=== PATIENT | male | born 1960 | race Caucasian/White ===

== ENCOUNTER → 2018-01-17 | Outpatient (CLI) | payer BC ==
[2018-01-17 15:55] LABS: Basophils % (A) 0 %; Eosinophils # (A) 0.3 k/uL (0-0.7); Eosinophils % (A) 4 %; HCT 41.7 % (39.0-53.0); HGB 13.7 gm/dL (13.0-17.5); Lymphocytes # (A) 2.1 k/uL (1.0-4.8); Lymphocytes % (A) 27 %; MCH 31.7 pg (25.0-35.0); MCHC 32.9 g/dL (31.0-37.0); MCV 96.4 fL (80.0-100.0); Mean Platelet Volume 7.1; Monocytes # (A) 0.4 k/uL (0-1.0); Monocytes % (A) 6 %; Neutrophils % (A) 63 %; Platelet Count 292 k/uL (150-450); RBC 4.33 m/uL (4.30-5.90); WBC 7.9 k/uL (3.8-10.6)
[2018-01-17 16:13] LABS: Anion Gap 6 mmol/L; Blood Urea Nitrogen 16 mg/dL (9-20); Calcium 9.2 mg/dL (8.4-10.2); Carbon Dioxide 29 mmol/L (22-30); Chloride 104 mmol/L (98-107); Glucose 92 mg/dL (74-99); Potassium 4.6 mmol/L (3.5-5.1); Sodium 139 mmol/L (137-145)
== END | disposition home or self-care (01) ==
LOC: LABPAT 15:11
PROVIDERS: ATTEND Urology
DX: Z01.812 Encounter for preprocedural laboratory examination (principal); C61 Malignant neoplasm of prostate; R35.0 Frequency of micturition; E03.9 Hypothyroidism, unspecified
CPT/HCPCS: 36415; 80048; 85025; 87086

== ENCOUNTER 2018-01-25 05:47 | Observation (INO) | payer BC ==
[2018-01-24 11:50] VITALS: BMI 21.9
--- NOTE | 2018-01-24 13:14 | P.GSHP ---
History of Present Illness H&P Date: 01/20/18 Chief Complaint: Prostate Cancer The patient is a 57-year-old male with recently diagnosed prostate cancer. His PSA level is 4.5. His prostate volume is 18 cc. Biopsies showed a small focus of [place] 6 adenocarcinoma in the left lateral apex, and [place] 7 (3+4) in the right lateral mid gland (40%). He denies voiding symptoms and erectile dysfunction. His Prolaris score is 2.3. - Cardiovascular Cardiovascular: Reports shortness of breath - Respiratory Respiratory: Reports cough - Gastrointestinal Gastrointestinal: Reports abdominal pain - Genitourinary (Female) Genitourinary: Reports urinary frequency - Endocrine Endocrine: Reports fatigue Past Medical History Additional Past Medical History / Comment(s): post concussion syndrome multiple finger ambutation History of Any Multi-Drug Resistant Organisms: None Reported Past Surgical History: Orthopedic Surgery Additional Past Surgical History / Comment(s): multiple hand surg Past Psychological History: Depression Smoking Status: Smoker, current status unknown Past Alcohol Use History: Occasional Past Drug Use History: Marijuana - Past Family History Mother Family Medical History: Cancer Additional Family Medical History / Comment(s): colon cancer Father Family Medical History: Congestive Heart Failure (CHF) Medications and Allergies Home Medications Medication Instructions Recorded Confirmed Type Atorvastatin [Lipitor] 40 mg PO DAILY 01/24/18 01/24/18 History DULoxetine HCL [Cymbalta] 60 mg PO DAILY 01/24/18 01/24/18 History Levothyroxine Sodium [Synthroid] 100 mcg PO DAILY 01/24/18 01/24/18 History clonazePAM [KlonoPIN] 0.5 mg PO DAILY PRN 01/24/18 01/24/18 History lamoTRIgine [LaMICtal] 50 mg PO HS 01/24/18 01/24/18 History lamoTRIgine [LaMICtal] 200 mg PO DAILY 01/24/18 01/24/18 History Allergies Allergy/AdvReac Type Severity Reaction Status Date / Time No Known Allergies Allergy Verified 01/24/18 11:37 Surgical - Exam - General well developed, well nourished, no distress - Neck no masses, trachea midline - Respiratory normal respiratory effort, clear to auscultation - Cardiovascular Rhythm: regular Abnormal Heart Sounds: no systolic murmur, no diastolic murmur, no rub, no S3 Gallop, no S4 Gallop, no click, no other - Abdomen Abdomen: soft, non tender, no guarding, no rigid, no rebound - Genitourinary normal penis with no external lesions, testicles non-tender - Rectum Rectum: normal sphincter tone, no masses, other (prostate palpably normal) - Psychiatric oriented to time, oriented to person, oriented to place, speech is normal, memory intact Assessment and Plan (1) Malignant neoplasm of prostate Status: Acute Code(s): C61 - MALIGNANT NEOPLASM OF PROSTATE SNOMED Code(s): 297781335 Plan: The patient has elected to undergo a nerve sparing robotic-assisted laparoscopic prostatectomy (RALP). A pelvic lymphadenectomy is not felt to be indicated. The procedure has been reviewed in detail with the patient and his . The anticipated perioperative course was discussed, as were potential risks. These include anesthesia, bleeding, infection, urinary leak, rectal injury, vesical neck contracture, development of a hernia, urinary incontinence , and erectile dysfunction (despite preservation of the neurovascular bundles). He is also aware of the possible need for adjuvant therapy.
[~2018-01-25 05:47] MED LIST: HEPARIN SODIUM,PORCINE 5,000 UNIT/ML 1 ML VIAL SQ ONE
[2018-01-25] MEDS ORDERED: ceFAZolin 1,000 MG in EMPTY BAG 1 BAG IVPB ONE (06:00)
[2018-01-25] MEDS ORDERED: HYDROmorphone 0.5 MG/0.5 ML SYRINGE IVP PRN (06:03)
[2018-01-25] MEDS ORDERED: MIDAZOLAM 2 MG/2 ML VIAL IV PRN (06:03)
[2018-01-25] MEDS ORDERED: fentaNYL (PF) 50 MCG/ML 2 ML AMP IV PRN (06:03)
[2018-01-25] MEDS ORDERED: LIDOCAINE 1% 20 ML VIAL (10MG/ML) FOR IV START INTRADERMA ONE (06:33)
[2018-01-25] MEDS: LACTATED RINGERS 1,000 ML IV SCH ×2 (06:33→06:37)
[2018-01-25] MEDS ORDERED: ONDANSETRON 4 MG/2 ML VIAL IVP ONE (06:38)
[2018-01-25] MEDS ORDERED: DEXAMETHASONE SOD PHOS (MDV) 100 MG/10 ML VIAL IV ONE (06:39)
[2018-01-25] MEDS ORDERED: ROPIVACAINE 5 MG/ML 30 ML VIAL MISCELLANE ONE (07:19)
[2018-01-25] MEDS ORDERED: fentaNYL (PF) 50 MCG/ML 2 ML AMP ONE (07:30)
[2018-01-25] MEDS ORDERED: PROPOFOL 10 MG/ML 20 ML VIAL IV ONE (07:30)
[2018-01-25] MEDS ORDERED: ONDANSETRON 4 MG/2 ML VIAL ONE (07:30)
[2018-01-25] MEDS ORDERED: ePHEDrine SULFATE/0.9% NACL/PF 50 MG/5 ML SYRINGE IV ONE (07:30)
[2018-01-25] MEDS ORDERED: VECURONIUM 10 MG VIAL IV ONE (07:30)
[2018-01-25] MEDS ORDERED: MIDAZOLAM 2 MG/2 ML VIAL ONE (07:30)
[2018-01-25] MEDS ORDERED: PHENYLEPHRINE-0.9% NACL SYG 1 MG/10 ML SYRINGE ONE (07:30)
[2018-01-25] MEDS ORDERED: LIDOCAINE 1% INJ 10MG/ML (20 ML MDV) ONE (07:30)
[2018-01-25] MEDS ORDERED: SUCCINYLCHOLINE CHLORIDE 100 MG/5 ML SYR IV ONE (07:30)
[2018-01-25] MEDS ORDERED: HYDROmorphone 1 MG/ML 1 ML SYRINGE IVP PRN (10:40)
[2018-01-25] MEDS ORDERED: ONDANSETRON 4 MG/2 ML VIAL IVP PRN (10:40)
[2018-01-25] MEDS ORDERED: MAG HYDROX/AL HYDROX/SIMETH 30 ML CUP PO PRN (10:40)
[2018-01-25] MEDS ORDERED: ACETAMINOPHEN TAB 325 MG TAB PO PRN (10:40)
[2018-01-25] MEDS ORDERED: LACTATED RINGERS 1,000 ML IV ONE (11:28)
[2018-01-25] MEDS: KETOROLAC 30 MG/ML 1 ML VIAL IVP PRN ×2 (12:35→19:29)
[2018-01-25] MEDS: DEXTROSE 5%-0.45% NACL 1,000 ML IV SCH ×2 (12:37→20:33)
--- NOTE | 2018-01-25 15:39 | P.OP ---
Date of Procedure: 01/25/18 Preoperative Diagnosis: Adenocarcinoma of the Prostate, Clinical Stage [id number] Postoperative Diagnosis: Same Procedure(s) Performed: Nerve Sparing Robotic-assisted Laparoscopic Prostatectomy (RALP) Anesthesia: CAMERON Surgeon: Armand Garcia Supervisory Civil Engineer #1: Duc Urena Estimated Blood Loss (ml): 50 IV fluids (ml): 800 Pathology: other (prostate and seminal vesicles) Condition: stable Disposition: PACU Indications for Procedure: The patient is a 57-year-old male with recently diagnosed prostate cancer. His PSA level is 4.5. His prostate volume is 18 cc. Biopsies showed a small focus of [place] 6 adenocarcinoma in the left lateral apex, and [place] 7 (3+4) in the right lateral mid gland (40%). He denies voiding symptoms and erectile dysfunction. His Prolaris score is 2.3. Operative Findings: No evidence of extraprostatic disease. Description of Procedure: The patient was taken in the operating room and placed in the dorsal lithotomy position, with his legs supported in Trent stirrups. He was carefully positioned on a beanbag for stability. The abdomen and external genitalia were prepped and draped sterilely. A Cadena catheter was inserted. The Veress needle was passed through the anterior abdominal wall immediately cephalad to the umbilicus, and insufflation was performed to a pressure of 20 mm Hg. Once insufflation was performed, the Veress needle was removed and a supraumbilical incision was made, through which a 12 mm camera port was placed. Under camera guidance, 3 8 mm robotic ports were placed, 2 on the left and one on the right. An additional 12 mm port was placed on the right lateral side for use as an licensed physical therapy assistant port. A 5 mm port was placed to the right of the camera port for suction. The patient was placed in Trendelenburg position, and docking was then performed to the da [place] system utilizing a 4-arm approach. The abdomen was examined. The sigmoid colon was mobilized out of the pelvis. The peritoneum was incised lateral to the medial umbilical ligaments bilaterally , exposing the pubis. The peritoneum was then incised across the midline, allowing the bladder flap to be taken down. The endopelvic fascia was opened bilaterally, and muscular attachments from the urogenital diaphragm were swept away from the prostate. The vesical neck was incised transversely, down to the lumen. The Cadena catheter was brought out through the anterior vesical neck incision and was used for traction. The posterior aspect of the vesical neck was incised, such that the full-thickness of the vesical neck was divided. The anterior layer of the Denonvilliers fascia was incised, exposing the vas deferens. Each were isolated and divided. Next, each of the seminal vesicles were dissected away from adjacent tissues, and vascular attachments were cauterized and divided. The posterior leaf of Denonvilliers fascia was incised transversely, allowing entry into the plane between the prostate and rectum. With lateral spreading, this plane was developed down to the apex. This exposed the lateral vascular pedicles bilaterally. These were clipped and divided in an antegrade fashion, down to the apex. The use of electrocautery was avoided to prevent thermal damage to the nerves. The plane of dissection was immediately adjacent to the prostate on the left side, and close to the prostate on the right side, to preserve the neurovascular bundles. The remaining apical attachments were swept away from the prostate. The dorsal venous complex was incised, as well as periurethral tissue. At this point, only the urethra remained intact. This was transected immediately distal to the prostatic apex using cold scissors. The specimen was placed within a specimen bag. The dorsal venous complex was sutured using a V-Loc suture in a running fashion. A second V-Loc suture was then used to place the Matthew stitch, incorporating the rhabdosphincter and the edge of Denonvilliers fascia. This allowed the bladder to be taken down to the urethra, leaving the vesical neck immediately adjacent to the urethra. The vesicourethral anastomosis was then performed using a V-Loc suture in a running fashion. After completing the anastomosis, an 18-Turkish Cadena catheter was placed and approximately 150 mL of 0.9 normal saline were instilled into the bladder. No extravasation of irrigant from the vesicourethral anastomosis was noted. A small amount of oozing was noted from the vascular pedicles, so Surgicel was placed bilaterally. The patient was returned to the supine position. Undocking was performed, and the specimen bag sutures were passed through the camera port. After removing all the ports and allowing all of the CO2 to be released from the peritoneal cavity, the camera port incision was enlarged to allow removal of the surgical specimen. The fascia of this incision was then closed using 0 Vicryl suture in an interrupted [id number] fashion. Each of the skin incisions were then closed using 4-0 Monocryl suture in a subcuticular fashion. Marcaine was injected at each of the incision sites. Dermabond was applied to each incision. The Cadena catheter was connected to gravity drainage. All sponge and needle counts were correct. The patient tolerated the procedure well was taken to the recovery room in stable condition.
[2018-01-25] MEDS ORDERED: clonazePAM 0.5 MG TAB PO PRN (18:09)
[2018-01-25] MEDS: HEPARIN SODIUM,PORCINE 5,000 UNIT/ML 1 ML VIAL SQ SCH (20:33)
[2018-01-25 20:49] VITALS: RESP 16
[2018-01-25] MEDS ORDERED: lamoTRIgine 100 MG TAB PO SCH (21:00)
[2018-01-26] MEDS: KETOROLAC 30 MG/ML 1 ML VIAL IVP PRN (04:50)
[2018-01-26] MEDS: DEXTROSE 5%-0.45% NACL 1,000 ML IV SCH (04:51)
[2018-01-26] MEDS ORDERED: LEVOTHYROXINE 100 MCG TAB PO SCH (06:30)
[2018-01-26 07:24] VITALS: BP 100/57; PULSE 65; TEMP 98.5
[2018-01-26] MEDS ORDERED: ATORVASTATIN 40 MG TAB PO SCH (09:00)
[2018-01-26] MEDS ORDERED: DULoxetine HCL 60 MG CAPSULE.DR PO SCH (09:00)
[2018-01-26] MEDS ORDERED: lamoTRIgine 100 MG TAB PO SCH (09:00)
--- NOTE | 2018-01-26 09:04 | P.PN ---
Progress Note - Text Progress Note Date: 01/26/18 The patient is afebrile and has been comfortable with minimal analgesics. He is tolerating a regular diet and has no nausea. His urine is clear. His abdominal incisions appear to be uninflamed. The patient says that he would be comfortable going home today and he will follow up with Dr. Garcia on 02/01.
[2018-01-26] MEDS: HEPARIN SODIUM,PORCINE 5,000 UNIT/ML 1 ML VIAL SQ SCH (09:34)
== END 2018-01-26 11:04 | disposition home or self-care (01) ==
LOC: OR 05:47 → 3SUR 10:38 → OR 01-26 06:15
PROVIDERS: ADMIT Urology; ATTEND Urology
DX: C61 Malignant neoplasm of prostate (principal); R06.02 Shortness of breath; R05 Cough; R10.9 Unspecified abdominal pain; R53.83 Other fatigue; F32.9 Major depressive disorder, single episode, unspecified; F17.200 Nicotine dependence, unspecified, uncomplicated; Z80.0 Family history of malignant neoplasm of digestive organs; Z82.49 Family history of ischemic heart disease and other diseases of the circulatory system; Z79.899 Other long term (current) drug therapy; E78.5 Hyperlipidemia, unspecified; E07.9 Disorder of thyroid, unspecified; R56.9 Unspecified convulsions; Z79.890 Hormone replacement therapy; F07.81 Postconcussional syndrome; Z89.029 Acquired absence of unspecified finger(s)
CPT/HCPCS: 55866; 86900; 86901; 86850; 88309; G0378; J2250; J1644 ×2; J2405; J2001; J3010; J1885 ×2; J0690; J1100; J2795; J2370; J0330; J2704

== ENCOUNTER → 2018-07-15 | Outpatient (CLI) | payer BC | END | disposition home or self-care (01) | LOC: LABWHC1 10:35 | PROVIDERS: ATTEND Urology | DX: C61 Malignant neoplasm of prostate (principal) | CPT/HCPCS: 36415; 84153 ==

== ENCOUNTER 2018-09-26 11:20 | Emergency (ER) | payer BC ==
[2018-09-26] MEDS ORDERED: SODIUM CHLORIDE 0.9% 1,000 ML IV STA (11:28)
[2018-09-26 12:00] LABS: Basophils # (A) 0.1 k/uL (0-0.2); Basophils % (A) 0 %; Eosinophils # (A) 0.7 k/uL (0-0.7); Eosinophils % (A) 6 %; HCT 44.8 % (39.0-53.0); HGB 14.5 gm/dL (13.0-17.5); Lymphocytes # (A) 3.3 k/uL (1.0-4.8); Lymphocytes % (A) 31 %; MCH 31.9 pg (25.0-35.0); MCHC 32.4 g/dL (31.0-37.0); MCV 98.5 fL (80.0-100.0); Mean Platelet Volume 6.8; Monocytes # (A) 0.3 k/uL (0-1.0); Monocytes % (A) 3 %; Neutrophils # (A) 6.1 k/uL (1.3-7.7); Neutrophils % (A) 57 %; Platelet Count 282 k/uL (150-450); RBC 4.55 m/uL (4.30-5.90); RDW 13.5 % (11.5-15.5); WBC 10.7 k/uL (3.8-10.6)
[2018-09-26 12:05] LABS: ALT 19 U/L (21-72); AST 21 U/L (17-59); Albumin 4.2 g/dL (3.5-5.0); Alkaline Phosphatase 61 U/L (38-126); Anion Gap 6 mmol/L; Blood Urea Nitrogen 12 mg/dL (9-20); Calcium 9.2 mg/dL (8.4-10.2); Carbon Dioxide 28 mmol/L (22-30); Chloride 104 mmol/L (98-107); Glucose 134 mg/dL (74-99); Lipase 95 U/L (23-300); Magnesium 1.9 mg/dL (1.6-2.3); Potassium 3.6 mmol/L (3.5-5.1); Sodium 138 mmol/L (137-145); Total Bilirubin 0.6 mg/dL (0.2-1.3); Total Protein 6.5 g/dL (6.3-8.2)
--- NOTE | 2018-09-26 12:08 | XR ---
EXAMINATION TYPE: XR chest 2V DATE OF EXAM: 09/26/2018 COMPARISON: Prior chest x-ray 08/12/2012 HISTORY: Chest pain TECHNIQUE: Frontal and lateral views of the chest are obtained. FINDINGS: There is no focal air space opacity, pleural effusion, or pneumothorax seen. The cardiac silhouette size is within normal limits. The osseous structures are intact. There are overlying car diac leads. IMPRESSION: No acute cardiopulmonary process.
[2018-09-26 12:22] LABS: D-Dimer 0.31 mg/L FEU (<0.60); INR 0.9 (<1.2); Partial Thromboplastin Time 24.5 sec (22.0-30.0); Prothrombin Time 9.8 sec (9.0-12.0)
--- NOTE | 2018-09-26 12:52 | ED ---
Chest Pain HPI - General Chief Complaint: Chest Pain Stated Complaint: chest pain Time Seen by Provider: 09/26/18 11:26 Source: patient, RN notes reviewed, old records reviewed Mode of arrival: ambulatory Limitations: no limitations - History of Present Illness Initial Comments: This is a 4-year-old male the ER for evaluation of chest pain. Patient has no history of chest pain no history of heart disease. Patient was pain is reflux- like in nature. Burning epigastric pain. No nausea vomiting currently no shortness of breath. Pain 4 days on and off it does improve with tonsil patient states he's never had to take Tums before his life. No recent travel she no sick contacts no fever cough or congestion. MD Complaint: chest pain -: hour(s) (4) Onset: during rest, during exertion, after eating Pain Location: substernal Pain Radiation: none Severity: mild Severity scale (1-10): 2 Quality: other (Burning) Consistency: intermittent Improves With: nothing Worsens With: nothing Anginal Symptoms: nausea Other Symptoms: acid taste in mouth Treatments Prior to Arrival: none - Related Data Home Medications Medication Instructions Recorded Confirmed DULoxetine HCL [Cymbalta] 60 mg PO DAILY 01/24/18 09/26/18 Levothyroxine Sodium [Synthroid] 100 mcg PO DAILY 01/24/18 09/26/18 lamoTRIgine [LaMICtal] 100 mg PO HS 01/24/18 09/26/18 lamoTRIgine [LaMICtal] 200 mg PO DAILY 01/24/18 09/26/18 clonazePAM [KlonoPIN] 0.5 mg PO DAILY 09/26/18 09/26/18 Allergies Allergy/AdvReac Type Severity Reaction Status Date / Time No Known Allergies Allergy Verified 09/26/18 11:48 Review of Systems ROS Statement: Those systems with pertinent positive or pertinent negative responses have been documented in the HPI. ROS Other: All systems not noted in ROS Statement are negative. EKG Findings - EKG Comments: EKG Findings:: EKG shows sinus bradycardia rate of 49, VA 162, QRS 94, QTC 410 Past Medical History Past Medical History: Hyperlipidemia, Prostate Disorder, Seizure Disorder, Thyroid Disorder Additional Past Medical History / Comment(s): post concussion syndrome multiple finger ambutation History of Any Multi-Drug Resistant Organisms: None Reported Past Surgical History: Orthopedic Surgery Additional Past Surgical History / Comment(s): multiple hand surg Past Anesthesia/Blood Transfusion Reactions: No Reported Reaction Past Psychological History: Depression Smoking Status: Current some day smoker Past Alcohol Use History: Occasional Past Drug Use History: Marijuana - Past Family History Mother Family Medical History: Cancer Additional Family Medical History / Comment(s): colon cancer Father Family Medical History: Congestive Heart Failure (CHF) General Exam Limitations: no limitations General appearance: alert, in no apparent distress Head exam: Present: atraumatic, normocephalic, normal inspection Eye exam: Present: normal appearance, PERRL, EOMI. Absent: scleral icterus, conjunctival injection, periorbital swelling ENT exam: Present: normal exam, mucous membranes moist Neck exam: Present: normal inspection. Absent: tenderness, meningismus, lymphadenopathy Respiratory exam: Present: normal lung sounds bilaterally. Absent: respiratory distress, wheezes, rales, rhonchi, stridor Cardiovascular Exam: Present: regular rate, normal rhythm, normal heart sounds. Absent: systolic murmur, diastolic murmur, rubs, gallop, clicks GI/Abdominal exam: Present: soft, normal bowel sounds. Absent: distended, tenderness, guarding, rebound, rigid Extremities exam: Present: normal inspection, full ROM, normal capillary refill. Absent: tenderness, pedal edema, joint swelling, calf tenderness Back exam: Present: normal inspection Neurological exam: Present: alert, oriented X3, CN II-XII intact Psychiatric exam: Present: normal affect, normal mood Skin exam: Present: warm, dry, intact, normal color. Absent: rash Course Vital Signs 09/26/18 09/26/18 09/26/18 11:22 12:30 13:00 Temperature 97.8 F Pulse Rate 52 L 52 L 54 L Respiratory 18 18 18 Rate Blood Pressure 123/73 116/81 110/79 O2 Sat by Pulse 96 99 97 Oximetry 09/26/18 09/26/18 13:30 13:49 Temperature 97.7 F Pulse Rate 53 L 61 Respiratory 18 16 Rate Blood Pressure 108/71 112/73 O2 Sat by Pulse 95 98 Oximetry - Reevaluation(s) Reevaluation #1: Medical record is reviewed Patient denies any current pain shortness of breath or complaints. Patient requesting discharge home with normal tests Chest Pain MDM - MDM 4-year-old male the ER for evaluation of atypical chest pain burning. Patient has normal evaluation here in the ER x-ray labwork and EKG. Vital signs are normal and patient can be discharged home with currently asymptomatic Disposition Clinical Impression: Atypical chest pain, Gastritis Disposition: HOME SELF-CARE Condition: Good Instructions (If sedation given, give patient instructions): Gastritis (ED) Is patient prescribed a controlled substance at d/c from ED?: No Referrals: Chet Cason MD [Primary Care Provider] - 1-2 days
[2018-09-26 13:51] VITALS: BP 112/73; PULSE 61; RESP 16; TEMP 97.7
== END 2018-09-26 13:45 | disposition home or self-care (01) ==
LOC: EC 11:20
DX: K29.70 Gastritis, unspecified, without bleeding (principal); R07.89 Other chest pain; G40.909 Epilepsy, unspecified, not intractable, without status epilepticus; F32.9 Major depressive disorder, single episode, unspecified; E07.9 Disorder of thyroid, unspecified; F17.200 Nicotine dependence, unspecified, uncomplicated; Z79.899 Other long term (current) drug therapy
CPT/HCPCS: 36415; 71046; 80053; 83690; 83735; 84484; 85025; 85379; 85610; 85730; 93005; 99285

== ENCOUNTER 2019-03-13 13:06 | Emergency (ER) | payer BC ==
[2019-03-13 13:22] VITALS: BP 110/72; RESP 16; TEMP 98.3
[2019-03-13 14:33] LABS: Basophils # (A) 0.1 k/uL (0-0.2); Basophils % (A) 1 %; Eosinophils # (A) 0.7 k/uL (0-0.7); Eosinophils % (A) 7 %; HCT 42.5 % (39.0-53.0); HGB 13.9 gm/dL (13.0-17.5); Lymphocytes % (A) 22 %; MCH 32.2 pg (25.0-35.0); MCHC 32.7 g/dL (31.0-37.0); MCV 98.7 fL (80.0-100.0); Mean Platelet Volume 6.7; Monocytes # (A) 0.4 k/uL (0-1.0); Monocytes % (A) 4 %; Neutrophils # (A) 5.9 k/uL (1.3-7.7); Neutrophils % (A) 64 %; Platelet Count 299 k/uL (150-450); RBC 4.31 m/uL (4.30-5.90); RDW 12.9 % (11.5-15.5); WBC 9.2 k/uL (3.8-10.6)
[2019-03-13 14:36] LABS: African American GFR (CKD) >90 (>60 ml/min/1.73 sqM); Anion Gap 8 mmol/L; Blood Urea Nitrogen 18 mg/dL (9-20); Calcium 8.8 mg/dL (8.4-10.2); Carbon Dioxide 27 mmol/L (22-30); Chloride 103 mmol/L (98-107); Glucose 137 mg/dL (74-99); Potassium 3.8 mmol/L (3.5-5.1); Sodium 138 mmol/L (137-145)
--- NOTE | 2019-03-13 14:53 | XR ---
EXAMINATION TYPE: XR chest 2V DATE OF EXAM: 03/13/2019 COMPARISON: Chest x-ray September 26, 2018. HISTORY: Chest pain. Upper rest for infection. TECHNIQUE: Frontal and lateral views of the chest are obtained. FINDINGS: Chronic parenchymal changes are present most prominent in the upper lungs. There is no foca l air space opacity, pleural effusion, or pneumothorax seen. The cardiac silhouette size is within n ormal limits. The osseous structures are intact. Overlying EKG leads are redemonstrated. IMPRESSION: Chronic parenchymal changes without acute pulmonary process.
[2019-03-13 15:14] VITALS: PULSE 59
--- NOTE | 2019-03-13 16:00 | ED ---
General Adult HPI - General Chief complaint: Chest Pain Stated complaint: Sinus drainage, chest pain Time Seen by Provider: 03/13/19 13:43 Source: patient Mode of arrival: ambulatory Limitations: no limitations - History of Present Illness Initial comments: 58 yoM presenting with excessive salivation and chest pain. Patient states for the past two week she has been having intermittent excessive salivation. He had one episode where we felt short substernal chest pressure without any anginal equivalents. He states he has not had any chest pressure since then. The pain occurred at the same time as the salivation. The other times the patient ahs had the excessive salivation he denies any chest pain. He denies any shortness of breath, mouth pain, dental pain, F/C, sore throat, N/V/D. Patient was initially seen at [facility] and placed on antihistamine and nasal spray which he states are not helping. - Related Data Home Medications Medication Instructions Recorded Confirmed DULoxetine HCL [Cymbalta] 60 mg PO DAILY 01/24/18 03/13/19 Levothyroxine Sodium [Synthroid] 100 mcg PO DAILY 01/24/18 03/13/19 lamoTRIgine [LaMICtal] 100 mg PO HS 01/24/18 03/13/19 lamoTRIgine [LaMICtal] 200 mg PO DAILY 01/24/18 03/13/19 clonazePAM [KlonoPIN] 0.5 mg PO DAILY 09/26/18 03/13/19 Atorvastatin [Lipitor] 40 mg PO DAILY 03/13/19 03/13/19 Previous Rx's Medication Instructions Recorded Glycopyrrolate [Robinul] 2 mg PO BID #30 tablet 03/13/19 Allergies Allergy/AdvReac Type Severity Reaction Status Date / Time No Known Allergies Allergy Verified 03/13/19 14:05 Review of Systems ROS Statement: Those systems with pertinent positive or pertinent negative responses have been documented in the HPI. ROS Other: All systems not noted in ROS Statement are negative. Constitutional: Denies: fever, chills Eyes: Denies: eye pain ENT: Denies: dental pain, congestion Respiratory: Denies: cough, dyspnea, wheezes Cardiovascular: Reports: chest pain. Denies: syncope Gastrointestinal: Denies: nausea, vomiting Musculoskeletal: Denies: myalgia Neurological: Denies: headache, weakness Past Medical History Past Medical History: Hyperlipidemia, Prostate Disorder, Seizure Disorder, Thyroid Disorder Additional Past Medical History / Comment(s): post concussion syndrome multiple finger ambutation History of Any Multi-Drug Resistant Organisms: None Reported Past Surgical History: Orthopedic Surgery Additional Past Surgical History / Comment(s): multiple hand surg Past Anesthesia/Blood Transfusion Reactions: No Reported Reaction Past Psychological History: Depression Smoking Status: Current some day smoker Past Alcohol Use History: Occasional Past Drug Use History: Marijuana - Past Family History Mother Family Medical History: Cancer Additional Family Medical History / Comment(s): colon cancer Father Family Medical History: Congestive Heart Failure (CHF) General Exam Limitations: no limitations General appearance: alert, in no apparent distress Head exam: Present: atraumatic, normocephalic Eye exam: Present: EOMI. Absent: scleral icterus, conjunctival injection ENT exam: Present: normal oropharynx, mucous membranes moist, other (No oral lesions, parotid swelling, dental infection) Neck exam: Present: full ROM. Absent: lymphadenopathy, thyromegaly Respiratory exam: Present: normal lung sounds bilaterally. Absent: accessory muscle use Cardiovascular Exam: Present: regular rate, normal rhythm. Absent: systolic murmur, diastolic murmur, rubs, gallop GI/Abdominal exam: Present: soft. 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 On initial exam the patient is awake, alert, and in NAD. VSS. EKG shows NSR without evidence of ischemia. Patient is asymptomatic in the department. His laboratory workup is negative. The patient has no obvious cause for his excessive salivation on exam, and is not currently experiencing it. He is handling his secretions without distress. At this time elected to give the patient an rx for Rob[place] PRN. I discussed him following up with ENT. His episode of chest pain has now resolved and did not sound anginal. I discussed with him following up outpatient with his PCP, which he was agreeable to. - Lab Data Result diagrams: 03/13/19 13:50 03/13/19 13:50 Lab Results 03/13/19 03/13/19 03/13/19 Range/Units 13:50 13:50 13:50 WBC 9.2 (3.8-10.6) k/uL RBC 4.31 (4.30-5.90) m/uL Hgb 13.9 (13.0-17.5) gm/dL Hct 42.5 (39.0-53.0) % MCV 98.7 (80.0-100.0) fL MCH 32.2 (25.0-35.0) pg MCHC 32.7 (31.0-37.0) g/dL RDW 12.9 (11.5-15.5) % Plt Count 299 (150-450) k/uL Neutrophils % 64 % Lymphocytes % 22 % Monocytes % 4 % Eosinophils % 7 % Basophils % 1 % Neutrophils # 5.9 (1.3-7.7) k/uL Lymphocytes # 2.0 (1.0-4.8) k/uL Monocytes # 0.4 (0-1.0) k/uL Eosinophils # 0.7 (0-0.7) k/uL Basophils # 0.1 (0-0.2) k/uL Sodium 138 (137-145) mmol/L Potassium 3.8 (3.5-5.1) mmol/L Chloride 103 (98-107) mmol/L Carbon Dioxide 27 (22-30) mmol/L Anion Gap 8 mmol/L BUN 18 (9-20) mg/dL Creatinine 0.91 (0.66-1.25) mg/dL Est GFR (CKD-EPI)AfAm >90 (>60 ml/min/1.73 sqM) Est GFR (CKD-EPI)NonAf >90 (>60 ml/min/1.73 sqM) Glucose 137 H (74-99) mg/dL Calcium 8.8 (8.4-10.2) mg/dL Troponin I (0.000-0.034) ng/mL NT-Pro-B Natriuret Pep 72 pg/mL 03/13/19 Range/Units 13:50 WBC (3.8-10.6) k/uL RBC (4.30-5.90) m/uL Hgb (13.0-17.5) gm/dL Hct (39.0-53.0) % MCV (80.0-100.0) fL MCH (25.0-35.0) pg MCHC (31.0-37.0) g/dL RDW (11.5-15.5) % Plt Count (150-450) k/uL Neutrophils % % Lymphocytes % % Monocytes % % Eosinophils % % Basophils % % Neutrophils # (1.3-7.7) k/uL Lymphocytes # (1.0-4.8) k/uL Monocytes # (0-1.0) k/uL Eosinophils # (0-0.7) k/uL Basophils # (0-0.2) k/uL Sodium (137-145) mmol/L Potassium (3.5-5.1) mmol/L Chloride (98-107) mmol/L Carbon Dioxide (22-30) mmol/L Anion Gap mmol/L BUN (9-20) mg/dL Creatinine (0.66-1.25) mg/dL Est GFR (CKD-EPI)AfAm (>60 ml/min/1.73 sqM) Est GFR (CKD-EPI)NonAf (>60 ml/min/1.73 sqM) Glucose (74-99) mg/dL Calcium (8.4-10.2) mg/dL Troponin I <0.012 (0.000-0.034) ng/mL NT-Pro-B Natriuret Pep pg/mL Disposition Clinical Impression: Salivation excessive, Chest pain Disposition: HOME SELF-CARE Condition: Good Instructions (If sedation given, give patient instructions): Chest Pain (ED), Sialorrhea (ED) Prescriptions: Glycopyrrolate [Robinul] 2 mg PO BID #30 tablet Is patient prescribed a controlled substance at d/c from ED?: No Referrals: Anand Melara MD [Primary Care Provider] - 1-2 days Jayden Peralta DO [Doctor of Osteopathic Medicine] - 1-2 days
== END 2019-03-13 16:19 | disposition home or self-care (01) ==
LOC: EC 13:06
DX: K11.7 Disturbances of salivary secretion (principal); R07.89 Other chest pain; E78.5 Hyperlipidemia, unspecified; G40.909 Epilepsy, unspecified, not intractable, without status epilepticus; E07.9 Disorder of thyroid, unspecified; F32.9 Major depressive disorder, single episode, unspecified; F17.200 Nicotine dependence, unspecified, uncomplicated; Z79.890 Hormone replacement therapy; Z79.899 Other long term (current) drug therapy; Z82.49 Family history of ischemic heart disease and other diseases of the circulatory system
CPT/HCPCS: 36415; 71046; 80048; 83880; 84484; 85025; 99285

== ENCOUNTER → 2020-03-04 | Outpatient (CLI) | payer BC ==
--- NOTE | 2020-03-04 13:56 | EST ---
EXERCISE STRESS AGE: 59 SEX: M HT: 75" WT: 176 PROTOCOL: Danny Stress Test STAGE: 3 DURATION OF EXERCISE: 8:00 HEART RATE REST: 65 BLOOD PRESSURE REST: 98/65 MAXIMUM HEART RATE ACHIEVED: 135 MAXIMUM BLOOD PRESSURE: 168/83 85% MPHR: 135 100% MPHR: 159 METS: 9.7 INDICATIONS: Family history CLINICAL INFORMATION: Baseline EKG shows sinus rhythm, normal axis, normal intervals. Patient exercised on Danny protocol for a total of 8 minutes achieving 9 METS, 85% of predicted maximal heart rate without chest pain or diagnostic ST-segment depression. CONCLUSION: 1. Good exercise tolerance. 2. Negative stress test by EKG criteria. MMODL / IJN: [id number] /
== END | disposition home or self-care (01) ==
LOC: RADNMMAIN 08:54
PROVIDERS: ATTEND Nurse Practitioner Adult Health
DX: Z13.6 Encounter for screening for cardiovascular disorders (principal); Z82.49 Family history of ischemic heart disease and other diseases of the circulatory system
CPT/HCPCS: 93017

== ENCOUNTER → 2023-03-13 | Outpatient (CLI) | payer OTHER ==
--- NOTE | 2023-03-13 08:55 | BD ---
EXAMINATION TYPE: Axial Bone Density DATE OF EXAM: 03/13/2023 CLINICAL HISTORY: 62 years old Male. ICD-10 CODE: Z13.820 ENCOUNTER FOR SCREENING FOR OSTEOPOROSIS Height: 6ft 3in Weight: 200.3 FRAX RISK QUESTIONS: Alcohol (3 or more units per day): no Family History (Parent hip fracture): no Glucocorticoids (More than 3mos): no (Ex: prednisone, prednisolone, methylprednisolone, dexamethasone, and hydrocortisone). History of Fracture in Adulthood: yes Secondary Osteoporosis: 1. Type 1 Diabetes: no 2. Hyperthyroidism: no 4. Malnutrition: no 5. Chronic liver disease: no Rheumatoid Arthritis: no Current Tobacco Use: no RISK FACTORS HISTORY OF: Surgery to Spine/Hip(right/left)/Wrist (right/left): no Family History of Osteoporosis: no Active: yes Diet low in dairy products/other sources of calcium: no Lost more than 2 inches in height since high school: no Additional History: EXAM MEASUREMENTS: Bone mineral densitometry was performed using the [employer]. Bone mineral density as measured about the Lumbar spine is: ----- L1-L4(G/cm2): 1.357 T Score Values are as follows: ----- L1: 1.0 ----- L2: -0.6 ----- L3: 1.5 ----- L4: 3.3 ----- L1-L4: 1.5 Z Score Values are as follows: ----- L1: 0.8 ----- L2: -09 ----- L3: 1.1 ----- L4: 2.9 ----- L1-L4: 1.2 Bone mineral density : baseline Bone mineral density about the R hip (g/cm2): 1.126 Bone mineral density about the L hip (g/cm2): 1.201 T Score values are as follows: -----R Neck: 1.3 -----L Neck: 1.4 -----R Total: 0.9 -----L Total: 1.5 Z Score values are as follows: -----R Neck: 1.9 -----L Neck: 2.1 -----R Total: 0.4 -----L Total: 1.0 Bone mineral density : baseline FRAX%s: The graph provided illustrates a 6.2% chance for a major osteoporotic fx and a 0.2% chance fo r the hips probability for fx in 10 years time. IMPRESSION: Normal (Values between +1 and -1 indicate normal bone mass). Consider repeating this study in 5 year s or sooner if there is some new clinical indication. NOTE: T-SCORE=SD OF THE YOUNG ADULT MEAN.
== END | disposition home or self-care (01) ==
LOC: RADBDWWP 07:43
PROVIDERS: ATTEND Internal Medicine
DX: Z13.820 Encounter for screening for osteoporosis (principal); S22.000A Wedge compression fracture of unspecified thoracic vertebra, initial encounter for closed fracture
CPT/HCPCS: 77080

== ENCOUNTER → 2023-03-13 | Outpatient (CLI) | payer OTHER | END | disposition home or self-care (01) | LOC: LABWHC1 13:31 | PROVIDERS: ATTEND Urology | DX: C61 Malignant neoplasm of prostate (principal) | CPT/HCPCS: 36415; 84153 ==

== ENCOUNTER → 2023-03-22 | Outpatient (CLI) | payer OTHER ==
--- NOTE | 2023-03-24 11:34 | MR ---
EXAMINATION TYPE: MR tspine/lspine wo con DATE OF EXAM: 03/22/2023 6:26 PM CLINICAL INDICATION:Male, 62 years old with history of M54.50 LOW BACK PAIN; PHH, Mid and low back pa in into right side COMPARISON: TECHNIQUE: Multi planar, multi sequence imaging was performed utilizing: T1-weighted, T2-weighted, a nd turbo inversion recovery imaging of the thoracic and lumbar spine. IV Contrast: cc . None. FINDINGS: Alignment: The thoracic and lumbar vertebral bodies have preserved heights and alignment. Cord: The conus medullaris and the distal spinal cord appear unremarkable with regards to their signa l intensity and morphology. Bones/Discs: Degeneration changes worse in the lower spine with T12 compression deformity without sig nificant bony edema. There is at least 50% height loss of the T12 vertebral body and 25% height loss of L1. There is also an L1 compression deformity without edema. Reactive adjoining edema of the adjoi olivier endplates of L4-L5. Spinal canal and neural foramen at these levels are as patent. Scattered Mod ic endplate changes are seen throughout the lower spine. THORACIC: No evidence significant spinal canal or neural foraminal stenosis. Spinal cord is within no rmal limits. LUMBAR: T12-L1: No evidence of significant spinal canal stenosis or neural foraminal stenosis. L1-L2: No evidence of significant spinal canal stenosis or neural foraminal stenosis. L2-L3: No evidence of significant spinal canal stenosis or neural foraminal stenosis. L3-L4: Disc bulge and facet joint arthropathy result in mild spinal canal and moderate bilateral neur al foraminal stenosis. L4-L5: Disc bulge and facet joint arthropathy result in mild spinal canal and moderate bilateral neur al foraminal stenosis. L5-S1: The disc is rounded posterior morphology with disc bulge and osteophyte formation without sign ificant spinal canal stenosis. Facet joint arthropathy with moderate neural foraminal stenosis. Other findings: None. IMPRESSION: 1. Remote appearing injuries of the T12 and L1 compression deformities without significant retropuls ion. 2. No evidence for significant spinal canal stenosis. 3. Moderate to severe degeneration changes throughout the spine with moderate multilevel neural fora lisa stenosis in the lumbar spine.
== END | disposition home or self-care (01) ==
LOC: RADMRIMAIN 17:04
PROVIDERS: ATTEND Orthopaedic Surgery
DX: M47.816 Spondylosis without myelopathy or radiculopathy, lumbar region (principal); M99.73 Connective tissue and disc stenosis of intervertebral foramina of lumbar region; M54.6 Pain in thoracic spine
CPT/HCPCS: 72146; 72148

== ENCOUNTER → 2023-05-24 | Outpatient (CLI) | payer OTHER ==
[2023-05-24 08:18] VITALS: BP 106/68; PULSE 66; RESP 15; TEMP 98.8
--- NOTE | 2023-05-24 15:12 | P.PAINPG ---
Objective - Vital Signs Vital signs: Intake & Output 05/23/23 05/24/23 05/24/23 18:59 06:59 18:59 Weight 97.522 kg PQRS Measure Charge Sheet Comment: HISTORY OF PRESENT ILLNESS: A 62 yr old male as a referral from Dr Owens presents today w severe and chronic LBP x 30 yrs secondary to DDD, spondylosis and facet arthropathy without myelopathy for evaluation. Pt states pain level is provoked at 8/10 in intensity, constant, localized in the lumbar spine, predominantly axial, sharp in character w occasional shooting pain towards the hips. Pain is provoked by over activity or standing > 15 min. Pain is alleviated by PT "a long time ago", medications (Ibu), manual massage, repositioning and rest. Oswestry axial pain score at 28. PMH: OA, Hyperlipidemia, BPHr, Seizure Disorder, Hypothyroid Disorder, MDD PSH: TURP (2018), Multiple Finger Amputation, SH: Daily tobacco use, Occasional ETOH use, Cannabis use FH: Mo- Colon CA. Fa- CHF. All: See list Meds: See list REVIEW OF ORGAN SYSTEMS: CONSTITUTIONAL: No fevers or chills. No recent weight loss. NEUROLOGICAL: + numbness and tingling along the distal extremities. No seizure disorders or headaches. MUSCULOSKELETAL: + pain PSYCHIATRIC: Denies current depression or suicidal thoughts. Physical Examinations : Constitutional : Cooperative , not in acute distress . Neurologic : Cranial nerve II to XII intact. No focal neurological deficits. Psychiatric : alert & oriented x 3. Matching mood & appropriate affect. Judgment & insight intact. Musculoskeletal : Cervical Spine Motor strength in the deltoid and biceps: Normal right side. Normal Left side Motor strength biceps and the wrist extensors: Normal right side . Normal left side Motor strength in the triceps muscle: Normal right side. Normal left side Deep tendon reflexes: Normal at the biceps. Normal at Brachioradialis. Normal at triceps Vertebral body tenderness to deep palpation over Cervical facet loading test: positive bilaterally Spurling test: positive bilaterally Neck distraction test: positive bilaterally Celestina sign: positive bilaterally Lumbar spine Motor strength lower extremities ,thigh and legs 5/5 Right side , 5/5 Left side Deep tendon reflexes : Normal Knee Jerk. Normal Ankle Jerk Vertebral body tenderness over L4 Mancini Test positive Lumbar facet Loading Test: positive Right / positive Left Range of motion of the lumbar spine Flexion 30 degrees, extension 10 degrees Straight Leg Raise test: Left/ Right positive at <35 degrees Tabitha test: positive right / positive left. Severe tenderness over the Sacroiliac joint on the Right / Left sides Gaenslen test: positive bilaterally Seated flexion test: positive bilaterally. Sacral spine : Severe tenderness over the Sacroiliac joint: right side / left side Range of motion: Flexion of the lumbar spine <60 degrees Range of motion: Extension of the lumbar spine <20 degrees Gaenslen's Test positive Tabitha test: positive right side / le ft side Thigh Thrust Test Sacral Thrust Test Imaging: MRI noncontrast of the thoracic and lumbar spine from 03/22/23 reviewed Assessment/ Plan : Lumbar DDD Recommendation of PT x 6 wks M51.36. RTC in 6 wks for a re evaluation. All questions answered. I have spent greater than 30 minutes on patient care today. Dr Canales was available by phone for the evaluation of this patient. The time was used to review the medical records including relevant urine studies and Prescription history (MAPs), review of the available imaging, evaluation and examination of the patient, coordination of care with the medical staff and if applicable referring physicians, as well as creation of the medical record PQRS Narrative: Smoking Status Current some day smoker Home Medications: Ambulatory Orders DULoxetine HCL [Cymbalta] 60 mg PO DAILY 01/24/18 Levothyroxine Sodium [Synthroid] 100 mcg PO DAILY 01/24/18 lamoTRIgine [LaMICtal] 100 mg PO HS 01/24/18 lamoTRIgine [LaMICtal] 200 mg PO DAILY 01/24/18 clonazePAM [KlonoPIN] 0.5 mg PO DAILY 09/26/18 Atorvastatin [Lipitor] 40 mg PO DAILY 03/13/19 Glycopyrrolate [Robinul] 2 mg PO BID #30 tablet 03/13/19 Controlled Substance Measures - Controlled Substance Measures Is patient prescribed a controlled substance at discharge?: No
== END ==
LOC: PNWHC3 07:48
PROVIDERS: ATTEND Specialist
DX: M48.061 Spinal stenosis, lumbar region without neurogenic claudication (principal); M51.36 Other intervertebral disc degeneration, lumbar region; M47.816 Spondylosis without myelopathy or radiculopathy, lumbar region; M19.90 Unspecified osteoarthritis, unspecified site; E03.9 Hypothyroidism, unspecified; E78.5 Hyperlipidemia, unspecified; F32.9 Major depressive disorder, single episode, unspecified; F17.200 Nicotine dependence, unspecified, uncomplicated
CPT/HCPCS: 99211

== ENCOUNTER → 2023-07-16 | Outpatient (CLI) | payer MEDICARE, OTHER ==
[2023-07-16 09:33] VITALS: BP 108/62; PULSE 77; RESP 15; TEMP 98.6
--- NOTE | 2023-07-16 14:35 | P.PAINPG ---
PQRS Measure Charge Sheet Comment: HISTORY OF PRESENT ILLNESS: A 63 yr old male presents today w severe and chronic LBP x 30 yrs secondary to DDD, spondylosis and facet arthropathy without myelopathy for evaluation. Pt states pain level is provoked at 3 /10 in intensity, constant, localized in the lumbar spine, predominantly axial, sharp in character w occasional shooting pain towards the hips. Pain is provoked by over activity or standing > 15 min. Pain is alleviated by PT x 4 wk which ended in Jul 2023, medications , manual massage, repositioning and rest. Oswestry axial pain score at 28. Interventional procedures include DENIES Medications include Ibu REVIEW OF ORGAN SYSTEMS: CONSTITUTIONAL: No fevers or chills. No recent weight loss. NEUROLOGICAL: + numbness and tingling along the distal extremities. No seizure disorders or headaches. MUSCULOSKELETAL: + pain PSYCHIATRIC: Denies current depression or suicidal thoughts. Physical Examinations : Constitutional : Cooperative , not in acute distress . Neurologic : Cranial nerve II to XII intact. No focal neurological deficits. Psychiatric : alert & oriented x 3. Matching mood & appropriate affect. Judgment & insight intact. Musculoskeletal : Cervical Spine Motor strength in the deltoid and biceps: Normal right side. Normal Left side Motor strength biceps and the wrist extensors: Normal right side . Normal left side Motor strength in the triceps muscle: Normal right side. Normal left side Deep tendon reflexes: Normal at the biceps. Normal at Brachioradialis. Normal at triceps Vertebral body tenderness to deep palpation over Cervical facet loading test: positive bilaterally Spurling test: positive bilaterally Neck distraction test: positive bilaterally Celestina sign: positive bilaterally Lumbar spine Motor strength lower extremities ,thigh and legs 5/5 Right side , 5/5 Left side Deep tendon reflexes : Normal Knee J erk. Normal Ankle Jerk Vertebral body tenderness over L1 Mancini Test positive Lumbar facet Loading Test: positive Right / positive Left Range of motion of the lumbar spine Flexion 30 degrees, extension 10 degrees Straight Leg Raise test: Left/ Right positive at <35 degrees Tabitha test: positive right / positive left. Severe tenderness over the Sacroiliac joint on the Right / Left sides Gaenslen test: positive bilaterally Seated flexion test: positive bilaterally. Sacral spine : Severe tenderness over the Sacroiliac joint: right side / left side Range of motion: Flexion of the lumbar spine <60 degrees Range of motion: Extension of the lumbar spine <20 degrees Gaenslen's Test positive Tabitha test: positive right side / left side Thigh Thrust Test Sacral Thrust Test Imaging: MRI noncontrast of the thoracic and lumbar spine from 03/22/23 reviewed Assessment/ Plan : Lumbar DDD, T12- L1 compression deformity Will manage residual pain and may RTC on an as needed basis. All questions answered. I have spent greater than 30 minutes on patient care today. Dr Canales was available by phone for the evaluation of this patient. The time was used to review the medical records including relevant urine studies and Prescription history (MAPs), review of the available imaging, evaluation and examination of the patient, coordination of care with the medical staff and if applicable referring physicians, as well as creation of the medical record PQRS Narrative: Smoking Status Current some day smoker Hx Alcohol Use (MH) No Home Medications: Ambulatory Orders DULoxetine HCL [Cymbalta] 60 mg PO DAILY 01/24/18 Levothyroxine Sodium [Synthroid] 100 mcg PO DAILY 01/24/18 lamoTRIgine [LaMICtal] 100 mg PO HS 01/24/18 lamoTRIgine [LaMICtal] 200 mg PO DAILY 01/24/18 clonazePAM [KlonoPIN] 0.5 mg PO DAILY 09/26/18 Atorvastatin [Lipitor] 40 mg PO DAILY 03/13/19 Glycopyrrolate [Robinul] 2 mg PO BID #30 tablet 03/13/19 Controlled Substance Measures - Controlled Substance Measures Is patient prescribed a controlled substance at discharge?: No
== END ==
LOC: PNWHC3 08:45
PROVIDERS: ATTEND Specialist
DX: M51.36 Other intervertebral disc degeneration, lumbar region (principal); M43.8X5 Other specified deforming dorsopathies, thoracolumbar region; F17.200 Nicotine dependence, unspecified, uncomplicated; F12.90 Cannabis use, unspecified, uncomplicated
CPT/HCPCS: 99211

== ENCOUNTER → 2023-11-23 | Outpatient (CLI) | payer OTHER ==
[2023-11-23 15:34] LABS: HCT 45.6 % (39.6-50.0); HGB 14.5 g/dL (13.0-17.0); MCH 31.6 pg (27.0-32.0); MCHC 31.8 g/dL (32.0-37.0); MCV 99.3 FL (80.0-97.0); NRBC Per 100 WBC 0 X 10*3/uL (0.00-0.01); Platelet Count 272 X 10*3/uL (140-440); RBC 4.59 X 10*6/uL (4.40-5.60); RDW 13.4 % (11.5-14.5); WBC 10.74 X 10*3/uL (4.50-10.00)
[2023-11-23 15:35] LABS: Basophils # (A) 0.04 X 10*3/uL (0.00-0.10); Basophils % (A) 0.4 %; Eosinophils # (A) 0.45 X 10*3/uL (0.04-0.35); Eosinophils % (A) 4.2 %; Lymphocytes # (A) 3.61 X 10*3/uL (0.90-5.00); Lymphocytes % (A) 33.6 %; Monocytes # (A) 0.63 X 10*3/uL (0.20-1.00); Monocytes % (A) 5.9 %; Neutrophils # (A) 5.94 X 10*3/uL (1.80-7.70); Neutrophils % (A) 55.2 %
[2023-11-23 15:50] LABS: ALT 13 U/L (10-49); AST 24 U/L (14-35); Albumin 4.2 g/dL (3.8-4.9); Alkaline Phosphatase 102 U/L (41-126); BUN/Creat Ratio 7.77 Ratio (12.00-20.00); Blood Urea Nitrogen 10.1 mg/dL (9.0-27.0); Calcium 9.5 mg/dL (8.7-10.3); Carbon Dioxide 24.5 mmol/L (21.6-31.8); Chloride 103 mmol/L (96-109); Chol/HDL Ratio 6.63 Ratio; Glucose 113 mg/dL (70-110); LDL Cholesterol,Calculated 169.7 mg/dL (0.0-131.0); Potassium 4.1 mmol/L (3.5-5.5); Sodium 140 mmol/L (135-145); Total Bilirubin 0.2 mg/dL (0.3-1.2); Total Protein 6.2 g/dL (6.2-8.2)
== END | disposition home or self-care (01) ==
LOC: LABWHC1 07:26
PROVIDERS: ATTEND Internal Medicine
DX: Z00.00 Encounter for general adult medical examination without abnormal findings (principal)
CPT/HCPCS: 36415; 80053; 80061; 84443; 85025

== ENCOUNTER → 2025-01-02 | Outpatient (CLI) | payer MEDICARE ==
--- NOTE | 2025-01-02 12:19 | XR ---
EXAMINATION TYPE: XR chest 2V DATE OF EXAM: 01/02/2025 11:51 AM COMPARISON: Chest radiographs from 03/20/2022 TECHNIQUE: XR chest 2V Frontal and lateral views of the chest. CLINICAL INDICATION:Male, 64 years old with history of J45.909 UNSPECIFIED ASTHMA, UNCOMPLICATED; FINDINGS: Lungs/Pleura: There is no evidence of pleural effusion, focal consolidation, or pneumothorax. Pulmonary vascularity: Unremarkable. Heart/mediastinum: Cardiomediastinal silhouette is unremarkable. Atherosclerotic calcifications are seen in the aorta. Musculoskeletal: No acute osseous pathology. IMPRESSION: No acute cardiopulmonary disease/process. [facility], , 01/02/2025 12:17 PM
== END | disposition home or self-care (01) ==
LOC: RADXRMAIN 11:27
PROVIDERS: ATTEND Internal Medicine
DX: J45.909 Unspecified asthma, uncomplicated (principal); I70.0 Atherosclerosis of aorta
CPT/HCPCS: 71046